=== PATIENT | female | born 1950 | race Caucasian/White ===

== ENCOUNTER 2020-11-04 15:01 | Emergency (ER) | payer OTHER, MEDICARE, SELFPAY ==
--- NOTE | ~2020-11-04 | XR_ITS ---
XR foot LT min 3V DATE: 11/04/2020 15:37 INDICATION: Fall. Twisted ankle. Swelling. TECHNIQUE: 4 views COMPARISON: None FINDINGS: There is evidence of ankle joint effusion. There is lateral ankle and hindfoot soft tissue swelling. Prominent plantar calcaneal enthesopathy. There is mild osteoarthritic arthritis at the first metatarsophalangeal joint. No recent fracture or dislocation, periosteal reaction or bone destruction. There is old healed fracture deformity of the distal shaft of the second metatarsal bone. IMPRESSION: Lateral ankle and hindfoot soft tissue swelling No recent fracture or dislocation Old healed distal second metatarsal shaft fracture Plantar calcaneal enthesopathy Mild osteoarthritis at the first metatarsophalangeal joint Reviewed, dictated and finalized at location A.
--- NOTE | ~2020-11-04 | XR_ITS ---
XR ankle LT min 3V DATE: 11/04/2020 15:38 INDICATION: Fall. Twisted ankle and foot. Pain. Swelling. TECHNIQUE: 4 views COMPARISON: None FINDINGS: There is lateral soft tissue swelling. There is evidence of ankle joint effusion. No fractu re or dislocation of the ankle or disruption of ankle mortise. IMPRESSION: Lateral soft tissue swelling and ankle joint effusion No fracture or dislocation Reviewed, dictated and finalized at location A.
[2020-11-04 15:06] VITALS: BP 143/67; PULSE 58; RESP 18; TEMP 36.1; O2SAT 96
--- NOTE | 2020-11-04 15:58 | ED.LOWEXIN ---
HPI - Extremity Injury (Lower) General Chief Complaint: Extremity Injury, Lower Stated Complaint: ankle injury Time Seen by Provider: 11/04/20 15:57 Source: patient Mode of arrival: wheelchair Limitations: no limitations History of Present Illness HPI Narrative: Patient is a 70-year-old female who presents for evaluation of left ankle pain. Patient rolled her left ankle after having it caught in a chair lift on a bus. Patient is anticoagulated but denies head trauma or loss of consciousness. She is reporting mild, dull left ankle pain which is worse with movement. She reports swelling and bruising at the site. She denies chest pain but states she did hit her chest on the ground and has some bruising over her left breast. She denies any shortness of breath. No prodromal symptoms prior to the fall. No current lightheadedness or dizziness. No vision changes, nausea or vomiting. Patient has history of stress fracture in the left foot in the past. She denies numbness or weakness. Patient took ibuprofen at home which did not improve the symptoms. Injury happened several hours ago this morning. Related Data Allergies Allergy/AdvReac Type Severity Reaction Status Date / Time acetaminophen Allergy Unknown Nausea and Verified 11/04/20 15:26 Vomiting esomeprazole Allergy Unknown Other Verified 11/04/20 15:26 hydrocodone Allergy Unknown Nausea and Verified 11/04/20 15:26 Vomiting levofloxacin Allergy Unknown Nausea Verified 11/04/20 15:26 metoprolol Allergy Unknown Other Verified 11/04/20 15:26 omeprazole Allergy Unknown Other Verified 11/04/20 15:26 Sulfa (Sulfonamide Allergy Unknown Nausea Verified 11/04/20 15:26 Antibiotics) tuberculin,PPD,multi-puncture Allergy Unknown Other Verified 11/04/20 15:26 vancomycin Allergy Unknown Itching Verified 11/04/20 15:26 Review of Systems Review of Systems: Narrative: CONSTITUTIONAL: Denies fever, chills EYES: Denies visual changes, redness, or discharge. ENT: Denies rhinorrhea, congestion, sore throat, or otalgia. CARDIOVASCULAR: Denies chest pain, palpitations, or edema. RESPIRATORY: Denies cough or dyspnea. GASTROINTESTINAL: Denies abdominal pain, nausea, vomiting, or diarrhea. GENITOURINARY: Denies dysuria or hematuria. SKIN: Denies rash or itching. MUSCULOSKELETAL: Denies back pain, reports left ankle pain, denies other extremity pain NEUROLOGIC: Denies headache, numbness, or weakness. [facility] Social History Social History Gender identity (if verbalized by the patient): Female Exam Narrative: Exam Narrative: GENERAL: Awake, alert, conversant HEAD: Normocephalic, atraumatic. EYES: 2+ PERRLA and EOMI. ENT: Nares clear, no rhinorrhea or epistaxis. Mucous membranes moist. NECK: Supple. CHEST: No respiratory distress, breathing even and non labored, no crepitus, left chest wall ecchymosis HEART: Regular rate, sinus rhythm ABDOMEN:Non distended, non tender EXTREMITIES: No deformity. Mild edema, ecchymoses left ankle, lateral aspect. Point tenderness on the lateral malleolus. No injury to the knee. DP pulse 2+. Pt does have some active flexion and extension. Intact distal sensation. SKIN: Warm, dry, no rash. NEURO:No focal deficits. Alert and oriented x3. EOMs intact without nystagmus. No facial droop/asymmetry noted bilaterally. Grimace intact. Hearing intact bilaterally. Strength 5/5 bilateral upper extremities. Strength 5/5 bilateral lower extremities. Ambulatory exam deferred. Course Vital Signs Vital signs: Vital Signs Temperature 36.1 C L 11/04/20 15:06 Pulse Rate 58 L 11/04/20 15:06 Respiratory Rate 18 11/04/20 15:06 Blood Pressure 143/67 H 11/04/20 15:06 Pulse Oximetry 96 11/04/20 15:06 Temperature 36.1 C L 11/04/20 15:06 Pulse Rate 77 11/04/20 16:41 Respiratory Rate 16 11/04/20 16:41 Blood Pressure 144/64 H 11/04/20 16:41 Pulse Oximetry 98 11/04/20 16:41 MDM - Extremity Injury (Lower) MDM Narrative Medical decision
[2020-11-04 16:41] VITALS: BP 144/64; PULSE 77; RESP 16; O2SAT 98
== END 2020-11-04 16:42 | disposition home or self-care (01) ==
PROVIDERS: Emergency Provider Emergency Medicine
DX: S96.912A Strain of unspecified muscle and tendon at ankle and foot level, left foot, initial encounter (principal); S93.402A Sprain of unspecified ligament of left ankle, initial encounter; M77.32 Calcaneal spur, left foot; M19.072 Primary osteoarthritis, left ankle and foot; X50.9XXA Other and unspecified overexertion or strenuous movements or postures, initial encounter
CPT/HCPCS: 73610; 73630; 99283